=== PATIENT | male | born 1960 | race Caucasian/White ===

== ENCOUNTER → 2023-03-04 | Outpatient (CLI) | payer OTHER ==
[~2023-03-04] MED LIST: ASPIRIN81 M1 PO; GLIMEPIRIDE4 MG PO; HYDRODIURIL25 MG PO; METFORMIN1000 MG PO; NAPROSYN500 MG PO; NORCO 325 MG-51 TAB PO; PARAFON FORTE500 MG PO; TRULICITY0.75 MG/0. SC; VICTOZA6 MG/ML SC
== END | disposition home or self-care (01) ==
LOC: CARD 01:11
PROVIDERS: ATTEND Internal Medicine Cardiovascular Disease
DX: R06.02 Shortness of breath (principal); R77.8 Other specified abnormalities of plasma proteins; E11.9 Type 2 diabetes mellitus without complications; I46.9 Cardiac arrest, cause unspecified